=== PATIENT | male | born 1940 | race Caucasian/White ===

== ENCOUNTER 2019-03-21 13:23 | Inpatient (IN) ==
[2019-03-21] MEDS ORDERED: REGLAN ONE (14:06)
[2019-03-21] MEDS ORDERED: PEPCID ONE (14:06)
[2019-03-21] MEDS ORDERED: LR 1,000 ML ONE (14:07)
[2019-03-21] MEDS ORDERED: GENTAMICIN 100 MG/NS 100 MG/100 ML IVPB ONE (14:07)
[2019-03-21] MEDS ORDERED: VANCOMYCIN 1 GM/NS 1 GM/250 ML IVPB ONE (14:07)
[2019-03-21 14:35] LABS: HEMATOCRIT 34.4 % (42.0-52.0); HEMOGLOBIN 12.9 g/dL (14.0-18.0); MCH 36.2 PG (27-31); MCHC 37.5 g/dL (33-37); MCV 96.6 FL (81-99); MPV 9.4 FL (7.4-10.4); RBC 3.56 XMIL (4.7-6.1); RDW 14.4 % (11.5-14.5); WBC 8.32 X1000 (4.8-10.8)
[2019-03-21 14:58] LABS: AGAP 16; BUN 11 mg/dL (8-22); CALCIUM 9.1 mg/dL (8.8-10.2); CHLORIDE 97 mmol/L (98-107); COSMO 273; ESTIMATED GFR > 60; GLUCOSE 123 mg/dL (70-104); POTASSIUM 4.4 mmol/L (3.5-5.1); SODIUM 136 mmol/L (136-145); TCO2 23 mmol/L (25-35)
[2019-03-21] MEDS ORDERED: XYLOCAINE-MPF 2% ONE (16:57)
[2019-03-21] MEDS ORDERED: DIPRIVAN 1% ONE (16:57)
[2019-03-21] MEDS ORDERED: ZOFRAN ONE (16:57)
[2019-03-21] MEDS ORDERED: DECADRON ONE (16:57)
[2019-03-21] MEDS ORDERED: PROTAMINE SULFATE ONE (17:05)
[2019-03-21] MEDS ORDERED: HYDROGEN PEROXIDE SOLUTION ONE (17:05)
[2019-03-21] MEDS ORDERED: VANCOMYCIN ONE (17:05)
[2019-03-21] MEDS ORDERED: NEOSPORIN G.U. IRRIGANT ONE (17:05)
[2019-03-21] MEDS ORDERED: FENTANYL ONE (17:48)
[2019-03-21 18:13] LABS: URINE SOURCE CATH
[2019-03-21 18:17] LABS: BILIRUBIN URINE NEGATIVE (NEGATIVE); BLOOD URINE NEGATIVE (NEGATIVE); COLOR YELLOW; GLUCOSE URINE NEGATIVE (NEGATIVE); KETONE URINE 60 mg/dL (NEGATIVE); LEUKOCYTES URINE NEGATIVE (NEGATIVE); NITRITE URINE NEGATIVE (NEGATIVE); PH URINE 6.5; PROTEIN URINE TRACE mg/dL (NEGATIVE); SP GRAVITY URINE 1.017; TURBIDITY URINE CLEAR (CLEAR); UROBILINOGEN URINE NORMAL (NORMAL)
[2019-03-21 18:19] LABS: UR EPITHELIAL CELLS <10 /HPF (<10); URINE BACTERIA NEGATIVE /HPF; URINE RBC <10 /HPF (<10); URINE WBC <10 /HPF (<10)
[2019-03-21] MEDS: DILAUDID ONE ×4 (18:27→18:38)
[2019-03-21] MEDS ORDERED: NS 1,000 ML ONE (18:35)
--- NOTE | 2019-03-21 19:37 | HISTORY AND PHYSICAL ---
HISTORY OF PRESENT ILLNESS: This is a 79-year-old with past medical history of gastroesophageal reflux disease, obesity, enlarged prostate, obstructive voiding problem. Started on Flomax and then cystoscopic exam revealed enlarged obstructing prostate, so had a transurethral resection of the prostate. He has since had a penile prosthesis placed. He was fishing and slipped on a log and fell on the prosthesis. It became swollen and Dr. Dom Oscar took him and had to take the prosthesis out. There was infection and pus around the prosthetic, and so plan to admit him, cover him with broad-spectrum antibiotics. PAST SURGICAL HISTORY: 1. Cholecystectomy. 2. Gastric bypass surgery. 3. Blepharoplasty. 4. Right elbow surgery. 5. Left knee surgery. 6. Left shoulder surgery. 7. Sinus surgery. 8. Has had a penile prosthesis per Dr. Dom Oscar. SOCIAL HISTORY: No alcohol use. No tobacco. REVIEW OF SYSTEMS: General: No weight gain or loss. No fever chills. HEENT: No change in vision or hearing acuity. No adenopathy or thyroid issues. Respiratory: No increased work of breathing or dyspnea. Cardiovascular: No chest pain or tachypalpitations. GI/: No change in bowels or urinary. He does have a history of benign prostatic hypertrophy and transurethral prostatectomy. Musculoskeletal/Neurologic: No new complaints Endocrinologic/hematologic: No significant history. PHYSICAL EXAMINATION: Postop, temperature 100.3 degrees, pulse 97, respirations 13, blood pressure 133/70. EYES: Pupils were equal, not distended. NECK VEINS: CVP less than 6 cm. Carotid pulses 2+ and symmetrical. Normal upstroke. Carotid, radial, and femoral pulses 2+ and symmetrical. CARDIOVASCULAR: Regular rhythm and rate without murmur or S3. PMI nondisplaced. ABDOMEN: Soft. SKIN: Warm and dry. Urine output was 2600 mL. Went to surgery. It looks like he had minimal blood loss. They did give him 80 mg of gentamicin and 1 g of vancomycin. ASSESSMENT AND PLAN: Trauma to his penile prosthesis with soft tissue infection. Prosthesis was removed. We will cover him for gram-negative anaerobes and gram-positives. I will put him on Zosyn 3.375 g intravenous q.6 hours and vancomycin will dose per pharmacy. Will obtain cultures from the drainage and further direct specific antibiotics. Will run normal saline in and follow his renal function and his electrolytes. His home medicine we will continue. He will be on omeprazole 40 mg a day, Flomax 0.4 mg daily, and he will get Norvasc 2.5 mg daily. cc: MD Jim Cochran MD
[2019-03-21] MEDS ORDERED: VANCOMYCIN 1 GM/NS 1 GM/250 ML IVPB IV ONE (19:50)
[2019-03-21] MEDS ORDERED: TYLENOL PO PRN (19:50)
[2019-03-21] MEDS ORDERED: VANCOMYCIN IV PER PHARMACY MISC SCH (20:15)
[2019-03-21] MEDS: ZOSYN 3.375 GM in NS 50 ML IV SCH (20:20)
[2019-03-21] MEDS: PERIDEX MT SCH (20:21)
--- NOTE | 2019-03-21 20:59 | OPERATIVE NOTE ---
PROCEDURE DATE: 03/21/2019 SURGEON: Jim Oscar MD PREOPERATIVE DIAGNOSIS: Scrotal wall abscess with an indwelling inflatable penile implant. POSTOPERATIVE DIAGNOSIS: Scrotal wall abscess with an indwelling inflatable penile implant with the abscess involving the pump control of the inflatable penile implant. PROCEDURE PERFORMED: Incise and drain the scrotal wall abscess and remove the 3-piece inflatable penile implant. ANESTHESIA: General via laryngeal mask. FINDINGS: Large fluctuant mass in the midline of the scrotum above the inflatable penile implant pump. After an incision was made, a large amount of purulent material came out, and the pump control was visible in the scrotum. The corporal bodies and reservoir did not appear to be involved with the abscess. INDICATION FOR PROCEDURE: This 79-year-old male is about 1 month status post placement of an inflatable penile implant. Approximately 1 week ago, he went fishing and fell and straddled a log. He states he had bleeding and over several days had increasing pain and redness of the scrotum. He was seen in the [facility] 2 days ago and given a gram of Rocephin IM and placed on Septra DS. The patient states he was feeling a little better, but the previous indurated area was now fluctuant. DESCRIPTION OF PROCEDURE: After informed consent was obtained from the patient and him receiving IV antibiotics, he was taken to the main OR and placed in the supine position. General anesthesia via laryngeal mask was achieved. He was then prepped and draped in the usual sterile fashion for lower abdominal, penile, and scrotal surgery. A longitudinal skin incision was made over the pump control and up to the previous healed incision of the implant. As soon as the skin incision was made a large amount of purulent material came out. Aerobic and anaerobic cultures were taken. The pump control was easily removed. The tubing to the corporal bodies was followed down to the corpora. The implant was inflated without difficulty. A 16-[place] Herman catheter was passed through the patient's urethra, prostate, and in the bladder without difficulty. Efflux was clear. Urine was obtained for a culture. 10 mL of sterile water were placed in the Herman's balloon. The urethra was moved to the side. An incision using the current on the Bovie was made first in the right corpora and then on the left corpora. The corporal bodies were easily removed. The corporal bodies were irrigated with irrigant and saline and then Betadine solution with saline and then hydrogen peroxide with saline and then protamine sulfate, vancomycin and water. This irrigant was repeated twice, first on the right side and then on the left. After the corporal bodies were removed, the tubing to the reservoir was cut, and the reservoir was drained. A hemostat was placed back on the tubing to the reservoir. The pump with the corporal bodies were passed off the field. The cutting current on the Bovie electrocautery was used to remove the tissue over the tubing to the reservoir, and then the tissue at the neck of the reservoir was incised, and the reservoir delivered. It was likewise passed off the field. The reservoir site was irrigated with the antibiotic irrigation that was used for the corporal bodies. Again 2 rounds of irrigation were done. The wound was then again irrigated with the irrigant and saline. The wound was packed both at the reservoir site and the pump control site at the scrotum with Betadine-soaked sponges. A total of 4 sponges were placed. This was covered with plain gauze and then wrapped with Kerlix, and mesh briefs were then placed. He tolerated the procedure well. Estimated blood loss was 5 mL. He was taken to the recovery room in good condition. cc: Jim Oscar MD
[2019-03-21] MEDS ORDERED: ZOFRAN IV PRN (21:00)
[2019-03-22] MEDS: NORCO-7.5 PO PRN ×3 (00:56→21:26)
[2019-03-22] MEDS: ZOSYN 3.375 GM in NS 50 ML IV SCH ×4 (02:42→20:45)
[2019-03-22] MEDS ORDERED: NORCO-5 PO PRN (03:30)
[2019-03-22] MEDS: PRILOSEC PO SCH (06:26)
[2019-03-22] MEDS: NS 1,000 ML IV SCH ×2 (06:27→16:04)
[2019-03-22 07:04] LABS: BASO# 0.01 X1000 (0.0-0.2); BASO% 0.1 % (0.0-0.8); HEMATOCRIT 35.6 % (42.0-52.0); HEMOGLOBIN 11.2 g/dL (14.0-18.0); IMM GRAN# 0.02 X1000 (0.0-0.04); IMM GRAN% 0.3 % (0.0-0.5); LYMPH# 0.55 X1000 (1.2-3.4); LYMPH% 6.9 % (20.5-51.1); MCH 30.8 PG (27-31); MCHC 31.5 g/dL (33-37); MCV 97.8 FL (81-99); MONO# 0.59 X1000 (0.11-0.59); MONO% 7.4 % (1.7-9.3); MPV 9.1 FL (7.4-10.4); NEUT# 6.83 X1000 (1.4-6.5); NEUT% 85.3 % (42.2-75.2); PLT 378 X1000 (130-400); RBC 3.64 XMIL (4.7-6.1); RDW 13.6 % (11.5-14.5)
[2019-03-22 07:27] LABS: AGAP 9; ALB/GLOB RATIO 1.1; ALBUMIN 2.8 g/dL (3.5-5.0); ALKALINE PHOSPHATASE 76 U/L (32-122); BUN 14 mg/dL (8-22); CALCIUM 8.3 mg/dL (8.8-10.2); CHLORIDE 102 mmol/L (98-107); COSMO 279; ESTIMATED GFR > 60; GLUCOSE 178 mg/dL (70-104); GOT 11 U/L (10-34); GPT 8 U/L (10-44); MAGNESIUM 2.7 mg/dL (1.5-2.7); SODIUM 137 mmol/L (136-145); TCO2 26 mmol/L (25-35); TOTAL BILIRUBIN 0.33 mg/dL (0.20-1.00); TOTAL PROTEIN 5.3 g/dL (6.3-8.3)
[2019-03-22 07:28] LABS: BANDS 2 % (0-1); LYMPHS 4 % (21-51); MONO 2 % (1-9); SEGS 92 % (42-75)
[2019-03-22 07:58] LABS: POTASSIUM 5.3 mmol/L (3.5-5.1)
[2019-03-22] MEDS: PERIDEX MT SCH ×2 (09:30→20:45)
[2019-03-22] MEDS: NORVASC PO SCH (09:30)
[2019-03-22] MEDS: FLOMAX PO SCH (09:30)
--- NOTE | 2019-03-22 09:31 | PROGRESS NOTE ---
DATE: 03/22/2019 SUBJECTIVE: Mr. Kelly feels much better, much less pain. He is awake. He almost ate all of his breakfast. OBJECTIVE: Vital Signs: His temperature was 100.3 degrees yesterday; this morning is 97.4, pulse 62, respirations 18, blood pressure 101/57. Eyes: Pupils are equal and round. Lungs: Lungs are clear in all lung evans. Cardiovascular exam: Regular rhythm and rate without murmur or S3. Abdomen: Abdomen is soft. Skin: Skin is warm and dry. Height: Height is 5 feet 9 inches. : His urine output was 1400 mL. ASSESSMENT AND PLAN: Trauma to his penile prosthesis, status post resection with soft tissue infection around the prosthesis. So, prosthetic was removed and cultures are pending. Have him on broad-spectrum antibiotics to cover for gram-negative anaerobes and gram positives. There was no bacteria seen in the Gram stain, no growth in urine at this point. REVIEW OF HIS ORDERS: 1. He is on vancomycin dosed per pharmacy 1500 mg IV q. 24 hours, Zosyn 3.375 g IV q. 6 hours. 2. Hypertension. Blood pressure well controlled. He is on amlodipine 2.5 mg a day. 3. Benign prostatic hypertrophy. He is on Flomax 0.4 mg daily. cc: Santhosh Morris MD
[2019-03-22] MEDS ORDERED: DILAUDID IV ONE (10:57)
[2019-03-22] MEDS ORDERED: VANCOMYCIN 1,500 MG in NS 250 ML IV SCH (17:00)
[2019-03-23] MEDS: ZOSYN 3.375 GM in NS 50 ML IV SCH ×2 (02:02→08:30)
[2019-03-23] MEDS: NORCO-10 PO PRN ×2 (02:02→11:29)
[2019-03-23] MEDS: NS 1,000 ML IV SCH (05:18)
[2019-03-23] MEDS: PRILOSEC PO SCH (06:05)
[2019-03-23 06:48] VITALS: BP 119/74
--- NOTE | 2019-03-23 11:04 | DISCHARGE SUMMARY ---
ADMISSION DATE: 03/21/2019 DISCHARGE DATE: HISTORY AND HOSPITAL COURSE: Postop from penile prosthesis infection. Prosthesis was removed. He has done well. We put him on broad spectrum antibiotic. Cultures did not grow out any specific data. He did drain quite a bit of pus during the procedure but knows how to change his dressings. Blood pressures, hemodynamics look good. We will let him go home. I will put him on Augmentin 875 mg p.o. b.i.d. for another 7 days and follow up with Dr. oDm Oscar. cc: Santhosh Morris MD
[2019-03-23] MEDS: FLOMAX PO SCH (11:30)
[2019-03-23] MEDS: PERIDEX MT SCH (11:31)
[2019-03-23] MEDS: NORVASC PO SCH (11:31)
--- NOTE | 2019-03-23 15:23 | DISCHARGE SUMMARY ---
ADMISSION DATE: 03/21/2019 DISCHARGE DATE: 03/23/2019 DISCHARGE DIAGNOSIS: 1. Scrotal wall abscess with involvement of the inflatable penile prosthesis. 2. Hypertension. 3. Erectile dysfunction. 4. Gastroesophageal reflux disease. DISCHARGE MEDICATIONS: 1. Augmentin 875 mg 1 p.o. b.i.d. dispense 14. 2. Ultram 50 mg one by mouth every 4 hours as needed for pain, dispense 12. 3. Amlodipine. 4. Prilosec. PROCEDURE PERFORMED: Incise and drain the scrotal wall abscess and removal of the 3 piece inflatable penile implant. HOSPITAL COURSE: This 79-year-old male is about one month status post placement of a 3-piece inflatable penile implant. He was doing well until he fell straddling a log while fishing. He states he then started having swelling and pain in the scrotum. Evaluation revealed a scrotal wall abscess. He underwent the above-noted procedure without difficulty. He has been undergoing Vashe wet-to-dry dressing changes and at discharge the wound is granulating well. He will continue b.i.d. dressing changes and washing out the wound with water once a day. He will follow up in the Urology Clinic on 03/26/2019. He will be given dressing change supplies to go home with. He will call immediately if he has any problems. cc: Jim Oscar MD
== END 2019-03-23 11:30 | disposition home or self-care (01) | DRG 675 ==
LOC: OR 13:23 → 4N 13:23 → SUATTDRO 19:12
PROVIDERS: ATTEND Emergency Medicine